=== PATIENT | female | born 1975 | race Caucasian/White ===

== ENCOUNTER 2018-03-18 12:38 | Outpatient (CLI) | payer OTHER | END 2018-03-18 12:39 | disposition home or self-care (01) | LOC: BICMAMMO 12:38 | PROVIDERS: ATTEND Registered Nurse | DX: N64.4 Mastodynia (principal); R22.32 Localized swelling, mass and lump, left upper limb | CPT/HCPCS: 77066; G0279 ==

== ENCOUNTER 2025-08-11 13:05 | Outpatient (CLI) | payer OTHER | END 2025-08-11 13:06 | disposition home or self-care (01) | LOC: BICMAMMO 13:05 | PROVIDERS: ATTEND Nurse Practitioner Family | DX: N95.9 Unspecified menopausal and perimenopausal disorder (principal); M85.88 Other specified disorders of bone density and structure, other site | CPT/HCPCS: 77080 ==